=== PATIENT | male | born 1990 | race Hispanic/Latino ===

== ENCOUNTER 2023-03-17 16:06 | Emergency (ER) | payer OTHER ==
--- NOTE | 2023-03-17 17:08 | RAD REPORT ---
EXAM DESCRIPTION: CT - Head C Spine Cap Wo Con - 03/17/2023 4:39 pm CLINICAL HISTORY: Trauma, head and neck injury. Chest, abdomen and pelvis pain. TRAUMA COMPARISON: <Comparisons> TECHNIQUE: CT head without contrast. CT cervical spine without contrast with coronal and sagittal reformatted images. CT chest, abdomen and pelvis without contrast with coronal and sagittal reformatted images of the spi ne. All CT scans are performed using dose optimization technique as appropriate and may include automated exposure control or mA/KV adjustment according to patient size. FINDINGS: CT HEAD WITHOUT CONTRAST: No intracranial hemorrhage, hydrocephalus or extra-axial fluid collection. No areas of brain edema o r midline shift. Moderate it maxillary sinus thickening. The calvarium is intact. CT CERVICAL SPINE WITHOUT CONTRAST: No fracture or subluxation. The prevertebral soft tissues are normal in thickness. CT CHEST, ABDOMEN, PELVIS WITHOUT CONTRAST: NOTE: Lack of contrast is a significant limitation in the assessment of trauma related findings. Spec ifically, solid organ, vascular and bowel evaluation is significantly limited. The lungs are clear.No pneumothorax or pericardial/pleural fluid. No evidence of intra-abdominal visceral injury, free fluid or free air is seen within the above detai led limitations. Significant stool is present throughout the colon. No concerning pelvic findings. No fractures. IMPRESSION: Negative for acute traumatic findings within the above detailed limitations.
[2023-03-17 17:46] LABS: Hematocrit 39.1 % (39.6-49.0); Lymphocytes % 12.2 % (15.3-44.8); MCV 90.9 fL (80-100); MPV 9.9 fL (7.6-11.3)
[2023-03-17 17:57] LABS: Potassium 3.9 mEq/L (3.5-5.1); Troponin High Sensitivity 22.2 pg/mL (<58.9)
[2023-03-17 17:59] LABS: ALT/SGPT 19 U/L (16-61); AST/SGOT 15 U/L (15-37); Albumin 3.6 g/dL (3.4-5.0); Alkaline Phosphatase 63 U/L (45-117); Bilirubin Direct < 0.1 mg/dL (0-0.2); Bilirubin Indirect, Calculated ND mg/dL (0.2-0.8); Bilirubin Total 0.3 mg/dL (0.2-1.0); Creatine Phosphokinase 134 U/L (39-308)
[2023-03-17 18:26] LABS: Specific Gravity 1.008 (1.005-1.030); Urine Bacteria <20 /HPF (<20); Urine Bilirubin NEGATIVE (Negative); Urine Blood 1+ (Negative); Urine Clarity Clear (Clear); Urine Color Colorless (Yellow); Urine Glucose NEGATIVE (Negative); Urine Protein TRACE (Negative); Urine RBC <5 /HPF (None Seen); Urine Sperm Present (None Seen); Urine Urobilinogen Normal (Normal)
[2023-03-17 18:33] LABS: Barbiturates NEGATIVE (NEGATIVE); Benzodiazepines NEGATIVE (NEGATIVE); Cocaine NEGATIVE (NEGATIVE); METHAMPHETAM NEGATIVE (NEGATIVE); Methadone NEGATIVE (NEGATIVE); Opiates NEGATIVE (NEGATIVE); Phencyclidine NEGATIVE (NEGATIVE); THC Cannibis NEGATIVE (NEGATIVE)
--- NOTE | 2023-03-17 18:50 | ER ---
Nurse's Notes [facility] Name: Fredi Morales Age: 32 yrs Sex: Male : 1990 Arrival Date: 03/17/2023 Time: 16:06 Bed 5 Private MD: Diagnosis: facial laceration, right cheondoism;Fall on same level, unspecified Presentation: 03/17 16:10 Chief complaint: EMS states: Pt from [facility], was in day room, fell and hit head, small ph laceration to R side of forehead, states that he does not know how he fell, denies other injuries, c-collar in place, VSS, BGL 130s. Coronavirus screen: Vaccine status: Patient reports receiving the 2nd dose of the covid vaccine. Ebola Screen: No symptoms or risks identified at this time. Initial Sepsis Screen: Does the patient meet any 2 criteria? No. Patient's initial sepsis screen is negative. Does the patient have a suspected source of infection? No. Patient's initial sepsis screen is negative. Risk Assessment: Do you want to hurt yourself or someone else? Patient reports no desire to harm self or others. Onset of symptoms was March 17, 2023. 16:10 Method Of Arrival: [facility] ph 16:10 Acuity: JERRY 3 ph 17:35 Care prior to arrival: Cervical collar in place. Mechanism of Injury: Fall from ph standing position. Trauma event details: Injury occurred in the [facility], Injury occurred: in an institution. Injury occurred: March 17, 2023. Triage Assessment: 16:16 General: Appears in no apparent distress. comfortable, Behavior is calm, cooperative, ph appropriate for age. Pain: Complains of pain in right cheondoism. Neuro: Level of Consciousness is awake, alert, obeys commands, Oriented to person, place, time, situation. Cardiovascular: Capillary refill < 3 seconds in bilateral fingers Patient's skin is warm and dry. Respiratory: Airway is patent Respiratory effort is even, unlabored. GI: No signs and/or symptoms were reported involving the gastrointestinal system. Derm: Skin is pink, warm \T\ dry. Musculoskeletal: Circulation, motion, and sensation intact. Range of motion: intact in all extremities. Injury Description: Laceration sustained to right cheondoism. Trauma Activation: Not Applicable Physician: ED Physician; Name: ; Notified At: ; Arrived At: Physician: General Surgeon; Name: ; Notified At: ; Arrived At: Physician: Radiology; Name: ; Notified At: ; Arrived At: Physician: Respiratory; Name: ; Notified At: ; Arrived At: Physician: Lab; Name: ; Notified At: ; Arrived At: Historical: - Allergies: 16:14 No Known Allergies; ph - PMHx: 16:14 None; ph - Immunization history:: Adult Immunizations up to date. - Social history:: Smoking status: Patient denies any tobacco usage or history of. - Immunization history: Last tetanus immunization: - up to date. Screenin:14 [facility] ED Fall Risk Assessment (Adult) History of falling in the last 3 months, ph including since admission Yes- single mechanical fall (1 pt) Confusion or Disorientation No (0 pts) Intoxicated or Sedated No (0 pts) Impaired Gait No (0 pts) Mobility Assist Device Used No (0 pt) Altered Elimination No (0 pt) Score/Fall Risk Level 0 - 2 = Low Risk Oriented to surroundings, Maintained a safe environment, Hourly rounding (assess needs \T\ fall precautionary measures) done. Abuse screen: Denies threats or abuse. Denies injuries from another. Nutritional screening: No deficits noted. Tuberculosis screening: No symptoms or risk factors identified. Primary Survey: 16:15 NO uncontrolled hemorrhage observed. A: The client is awake and alert. The airway is ph patent. The client is alert. Airway: patent. Breathing/Chest: Spontaneous respiratory effort, equal unlabored respirations, breath sounds clear bilaterally, regular pattern, symmetrical chest rise and fall. Circulation: No external hemorrhage present. Regular and strong central pulse, skin warm/dry/normal color. Disability Pupils are equal, round, reactive to light and accommodation. Exposure/Environment: There is no evidence of uncontrolled external bleeding. Obvious injury(ies) are noted at this time: laceration to R cheondoism. Assessment: 16:15 General: Appears in no apparent distress. Behavior is calm, cooperative, appropriate ph for age. Pain: Complains of pain in right cheondoism. Neuro: Level of Consciousness is awake, alert, obeys commands, Oriented to person, place, time, situation. Cardiovascular: Capillary refill < 3 seconds in bilateral fingers Patient's skin is warm and dry. Respiratory: Airway is patent Respiratory effort is even, unlabored. GI: No signs and/or symptoms were reported involving the gastrointestinal system. Derm: Skin is pink, warm \T\ dry. Musculoskeletal: Circulation, motion, and sensation intact. Range of motion: intact in all extremities. Injury Description: Laceration sustained to right cheondoism. 16:32 Reassessment: Pt taken to CT. ph 19:21 Reassessment: Patient appears in no apparent distress at this time. Patient and/or jb4 family updated on plan of care and expected duration. Pain level reassessed. Patient is alert, oriented x 3, equal unlabored respirations, skin warm/dry/pink. Vital Signs: 16:10 BP 122 / 79; Pulse 91; Resp 18; Temp 97.2; Pulse Ox 98% on R/A; Weight 77.11 kg; Height ph 5 ft. 8 in. ; 17:35 BP 133 / 85; Pulse 90; Resp 18; Pulse Ox 99% on R/A; ph 19:21 BP 135 / 83; Pulse 72; Resp 16; Pulse Ox 98% on R/A; jb4 16:10 Body Mass Index 25.85 (77.11 kg, 172.72 cm) ph Wynona Coma Score: 16:17 Eye Response: spontaneous(4). Motor Response: obeys commands(6). Verbal Response: ph oriented(5). Total: 15. 16:27 Eye Response: spontaneous(4). Motor Response: obeys commands(6). Verbal Response: sb4 oriented(5). Total: 15. 17:35 Eye Response: spontaneous(4). Motor Response: obeys commands(6). Verbal Response: ph oriented(5). Total: 15. 19:21 Eye Response: spontaneous(4). Motor Response: obeys commands(6). Verbal Response: jb4 oriented(5). Total: 15. Trauma Score (Adult): 16:17 Eye Response: spontaneous(1); Verbal Response: oriented(1); Motor Response: obeys ph commands(2); Systolic BP: > 89 mm Hg(4); Respiratory Rate: 10 to 29 per min(4); Nahun Score: 15; Trauma Score: 12 17:35 Eye Response: spontaneous(1); Verbal Response: oriented(1); Motor Response: obeys ph commands(2); Systolic BP: > 89 mm Hg(4); Respiratory Rate: 10 to 29 per min(4); Nahun Score: 15; Trauma Score: 12 19:21 Eye Response: spontaneous(1); Verbal Response: oriented(1); Motor Response: obeys jb4 commands(2); Systolic BP: > 89 mm Hg(4); Respiratory Rate: 10 to 29 per min(4); Wynona Score: 15; Trauma Score: 12 ED Course: 16:09 Patient arrived in ED. ph 16:11 Mallorie Garcia PA-C is PHCP. sb4 16:11 Mayo Harris MD is Attending Physician. sb4 16:14 Triage completed. ph 16:14 Arm band placed on Patient placed in an exam room, on a stretcher, on pulse oximetry. ph 16:14 Patient has correct armband on for positive identification. Bed in low position. Call ph light in reach. Side rails up X2. Pulse ox on. NIBP on. 16:14 Patient maintains SpO2 saturation greater than 95% on room air. ph 16:15 Thermoregulation: warm blanket given to patient. ph 16:32 Daija Hernandez, RN is Primary Nurse. ph 16:41 CT Traumagram (Head C Spine CAP wo con) In Process Unspecified. EDMS 17:33 Acetaminophen Sent. ph 17:33 Hepatic Function Sent. ph 17:33 Salicylate Sent. ph 17:33 ETOH Level Sent. ph 17:33 CPK Sent. ph 17:33 Troponin High Sensitivity Sent. ph 17:33 Basic Metabolic Panel Sent. ph 17:33 CBC with Diff Sent. ph 17:33 Type And Screen Sent. ph 17:43 Maintain EMS IV. Dressing intact. Good blood return noted. Site clean \T\ dry. Gauge \T\ ph site: 20 RFA. 18:24 UDS Sent. ph 18:24 Urinalysis w/ reflexes Sent. ph 18:24 Type And Screen Sent. ph 19:21 EKG done, by ED staff, reviewed by Mallorie Garcia PA-C. wm 19:21 Removal of peripheral IV. Catheter intact, dressing applied. wm 19:21 No provider procedures requiring assistance completed. IV discontinued, intact, jb4 bleeding controlled, No redness/swelling at site. Pressure dressing applied. Administered Medications: No medications were administered Medication: 16:15 VIS not applicable for this client. ph Outcome: 18:49 Discharge ordered by . samina 19:21 Discharged to Law Enforcement jb4 19:21 Condition: stable 19:21 Discharge instructions given to patient, Instructed on discharge instructions, follow up and referral plans. Demonstrated understanding of instructions, follow-up care. 19:23 Patient left the ED. [email or web address] Signatures: Dispatcher [employer] Daija Vasquez RN RN ph Bryson, James, RN RN jb4 Marsh, Wendy wm Brown, Sophia, PA-C PA-C sb4 Corrections: (The following items were deleted from the chart) 19:06 18:57 Inserted saline lock: 20 gauge in right antecubital area, using aseptic stefano technique. Blood collected. stefano : 18:57 Initial lab(s) drawn, by , sent to lab. First set of blood cultures drawn by stefano pratt, stefano
--- NOTE | 2023-03-17 18:50 | EDPHYS ---
Physician Documentation [facility] Name: Fredi Morales Age: 32 yrs Sex: Male : 1990 Arrival Date: 03/17/2023 Time: 16:06 Bed 5 Private MD: ED Physician Mayo Harris HPI: 03/17 16:22 This 32 yrs old Male presents to ER via EMS with complaints of Head Injury sb4 With LOC-Adult. 16:22 32 year old otherwise healthy incarcerated male comes in via EMS after a fall/syncope sb4 unknown cause. Staff reports that they found him on the ground in a room by himself and noted a laceration to his right confucianism. Patient states he does not know what happened. He denies feeling poorly before. Complains of 3/10 head pain upon arrival. A\T\Ox4, answering questions appropriately, moves all 4 extremities . Historical: - Allergies: 16:14 No Known Allergies; ph - PMHx: 16:14 None; ph - Immunization history:: Adult Immunizations up to date. - Social history:: Smoking status: Patient denies any tobacco usage or history of. - Immunization history: Last tetanus immunization: - up to date. ROS: 16:22 Constitutional: Negative for fever, chills, and weight loss. sb4 16:22 MS/extremity: Positive for injury or acute deformity, laceration, pain. 16:22 Neuro: Positive for headache, syncope, Negative for altered mental status, dizziness, visual changes, weakness. 16:22 All other systems are negative. Exam: 16:22 Constitutional: This is a well developed, well nourished patient who is awake, alert, sb4 and in no acute distress. Eyes: Extra-ocular motions intact. Periorbital areas with no swelling, redness, or edema. Cardiovascular: Regular rate and rhythm with a normal S1 and S2. Respiratory: Lungs have equal breath sounds bilaterally, clear to auscultation and percussion. No rales, rhonchi or wheezes noted. No increased work of breathing, no retractions or nasal flaring. Abdomen/GI: Soft, non-tender, no distension. MS/ Extremity: Pulses equal, no cyanosis. Neurovascular intact. Full, normal range of motion. Neuro: Awake and alert, GCS 15, oriented to person, place, time, and situation. Cranial nerves II-XII grossly intact. Motor strength 5/5 in all extremities. Sensory grossly intact. Cerebellar exam normal. Normal gait. 16:22 Skin: injury, laceration(s), the wound is approximately 1 cm(s), of the right confucianism, that can be described as clean, no foreign body, irregular, with mild bleeding. Vital Signs: 16:10 BP 122 / 79; Pulse 91; Resp 18; Temp 97.2; Pulse Ox 98% on R/A; Weight 77.11 kg; Height ph 5 ft. 8 in. ; 17:35 BP 133 / 85; Pulse 90; Resp 18; Pulse Ox 99% on R/A; ph 19:21 BP 135 / 83; Pulse 72; Resp 16; Pulse Ox 98% on R/A; jb4 16:10 Body Mass Index 25.85 (77.11 kg, 172.72 cm) ph Ebony Coma Score: 16:17 Eye Response: spontaneous(4). Motor Response: obeys commands(6). Verbal Response: ph oriented(5). Total: 15. 16:27 Eye Response: spontaneous(4). Motor Response: obeys commands(6). Verbal Response: sb4 oriented(5). Total: 15. 17:35 Eye Response: spontaneous(4). Motor Response: obeys commands(6). Verbal Response: ph oriented(5). Total: 15. 19:21 Eye Response: spontaneous(4). Motor Response: obeys commands(6). Verbal Response: jb4 oriented(5). Total: 15. Trauma Score (Adult): 16:17 Eye Response: spontaneous(1); Verbal Response: oriented(1); Motor Response: obeys ph commands(2); Systolic BP: > 89 mm Hg(4); Respiratory Rate: 10 to 29 per min(4); Nahun Score: 15; Trauma Score: 12 17:35 Eye Response: spontaneous(1); Verbal Response: oriented(1); Motor Response: obeys ph commands(2); Systolic BP: > 89 mm Hg(4); Respiratory Rate: 10 to 29 per min(4); Nahun Score: 15; Trauma Score: 12 19:21 Eye Response: spontaneous(1); Verbal Response: oriented(1); Motor Response: obeys jb4 commands(2); Systolic BP: > 89 mm Hg(4); Respiratory Rate: 10 to 29 per min(4); Nahun Score: 15; Trauma Score: 12 Laceration: 18:46 Wound Repair of 1.5cm ( 0.6in ) subcutaneous laceration to right confucianism. Irregularly sb4 shaped.. Minimal bleeding noted.. Distal neuro/vascular/tendon intact. Anesthesia: Local anesthetic administered with 2 mls of 1% lidocaine. Wound prep: Moderate cleansing with hibiclenz by me, Wound irrigation with saline by me, Wound explored, Copious irrigation. Skin closed with 2 5-0 Prolene using simple sutures and sterile technique. Dressed with non-adherent dressing. Patient tolerated well. MDM: 16:11 Patient medically screened. sb4 16:27 Differential diagnosis: Contusion of Hematoma on Laceration of Intracranial bleed- sb4 Concussion cerebral contusion. 18:46 Data reviewed: vital signs, nurses notes, lab test result(s), radiologic studies, and sb4 as a result, I will discharge patient. Historians other than the Patient: Law enforcement: . Counseling: I had a detailed discussion with the patient and/or guardian regarding: the historical points, exam findings, and any diagnostic results supporting the discharge/admit diagnosis, radiology results. Special discussion: Based on the patient's history, exam and DX evaluation, there is no indication for emergent intervention or inpatient TX. It is understood by the patient/guardian that if the SXs persist or worsen they need to return immediately for re-evaluation. 19:16 Independent interpretation of the following test(s) in the Emergency Department EKG: sb4 See my EKG interpretation above. 03/17 16:11 Order name: Basic Metabolic Panel; Complete Time: 17:58 sb4 03/17 16:11 Order name: CBC with Diff; Complete Time: 17:47 sb4 03/17 16:11 Order name: Type And Screen; Complete Time: 19:16 sb4 03/17 16:11 Order name: Urinalysis w/ reflexes; Complete Time: 18:27 sb4 03/17 16:11 Order name: Troponin High Sensitivity; Complete Time: 17:58 sb4 03/17 16:15 Order name: CPK; Complete Time: 18:21 sb4 03/17 16:15 Order name: UDS; Complete Time: 18:50 sb4 03/17 16:15 Order name: ETOH Level; Complete Time: 17:55 sb4 03/17 16:15 Order name: Acetaminophen; Complete Time: 18:21 sb4 03/17 16:15 Order name: Hepatic Function; Complete Time: 18:21 sb4 03/17 16:15 Order name: Salicylate; Complete Time: 18:21 sb4 03/17 16:11 Order name: CT Traumagram (Head C Spine CAP wo con); Complete Time: 17:10 sb4 03/17 16:11 Order name: Labs collected and sent; Complete Time: 17:33 sb4 03/17 16:11 Order name: EKG - Nurse/Tech; Complete Time: 19:21 sb4 03/17 18:46 Order name: Wound dressing; Complete Time: 19:21 sb4 EC:16 Rate is 79 beats/min. Rhythm is regular, Normal Sinus Rhythm. QRS [place] is Normal. [place] sb4 interval is normal at 192 msec. QRS interval is normal at 80 msec. QT interval is normal at 368 msec. No Q waves. T waves are Normal. Clinical impression: Normal ECG. Interpreted by me. Reviewed by me. Administered Medications: No medications were administered Disposition Summary: 03/17/23 18:49 Discharge Ordered Location: Home sb4 Problem: new sb4 Symptoms: have improved sb4 Condition: Stable sb4 Diagnosis - facial laceration, right confucianism sb4 - Fall on same level, unspecified sb4 Followup: sb4 - With: Private Physician - When: 5 - 6 days - Reason: Staple/Suture removal Discharge Instructions: - Discharge Summary Sheet sb4 - Facial Laceration, [id number] sb4 Forms: - Medication Reconciliation Form sb4 - Thank You Letter sb4 - Antibiotic Education sb4 - Prescription Opioid Use sb4 - Patient Portal Instructions sb4 Signatures: Dispatcher [employer] Daija Vasqeuz RN RN Mallorie Farnsworth PA-C PA-C sb4 Corrections: (The following items were deleted from the chart) 16:27 16:22 Skin: injury, laceration(s), that can be described as clean, no foreign body, sb4 irregular, with mild bleeding, sb4 16:27 16:22 Skin: sb4 sb4 18:47 18:46 Wound Repair of 1.5cm ( 0.6in ) subcutaneous laceration to right confucianism. sb4 Irregularly shaped.. Minimal bleeding noted.. Distal neuro/vascular/tendon intact. Anesthesia: Local anesthetic administered with 2 mls of 1% lidocaine. Wound prep: Moderate cleansing with hibiclenz by me, Wound irrigation with saline by me, Wound explored, Copious irrigation. Skin closed with 5 5-0 Prolene using simple sutures and sterile technique. Dressed with non-adherent dressing. Patient tolerated well. sb4
[2023-03-17 19:31] VITALS: TEMP 97.2
[2023-03-17 19:35] VITALS: BP 135/83; O2SAT 98
--- NOTE | 2023-03-19 15:42 | EKG ---
Test Date: 2023-03-17 Test Time: 19:12:39 Pipe Organ Mechanic: MEASUREMENT RESULTS: Intervals: Rate: 79 NV: 192 QRSD: 80 QT: 368 QTc: 421 [place]: P: 54 NV: 192 QRS: 70 T: 54 INTERPRETIVE STATEMENTS: Normal sinus rhythm Normal ECG No previous ECG available for comparison Electronically Signed On 03-19-23 15:41:08 CDT by Dima Lundy
== END 2023-03-17 19:23 | disposition home or self-care (01) ==
LOC: ER 16:06
PROC: 0HQ1XZZ Repair Face Skin, External Approach (ICD-10-PCS; principal; 2023-03-17)
DX: S01.81XA Laceration without foreign body of other part of head, initial encounter (principal); W18.30XA Fall on same level, unspecified, initial encounter
CPT/HCPCS: 36415; 70450; 71250; 72125; 80048; 80076; 80143; 80179; 80307; 81001; 82077; 82550; 84484; 85025; 86850; 86900; 86901; 93005; 99284